=== PATIENT | male | born 1950 | race Caucasian/White ===

== ENCOUNTER 2016-07-16 07:19 | Emergency (ER) | payer BC ==
[2016-07-16 07:38] VITALS: BP 146/94
[2016-07-16] MEDS ORDERED: Lidocaine 1%* 5 ML VIAL ONE (07:54)
--- NOTE | 2016-07-16 08:24 | UC ---
Skin Complaint HPI - HPI Summary HPI Summary: large lump on back of neck for a decade. Now irritated, red, painful. No drainage. MIld malaise and low-grade fever today - History of Current Complaint Chief Complaint: UCSkin Time Seen by Provider: 07/16/16 07:21 Stated Complaint: LUMP BACK OF NECK Hx Obtained From: Patient Onset/Duration: Gradual Onset, Lasting Days - 3 Timing: Constant Onset Severity: Mild Current Severity: Moderate Location: Other - back of neck Character: Swelling, Redness, Painful Aggravating: Touch Alleviating: Nothing Associated Signs & Symptoms: Positive: Tenderness - Allergy/Home Medications Allergies/Adverse Reactions: Allergies Allergy/AdvReac Type Severity Reaction Status Date / Time No Known Allergies Allergy Verified 07/16/16 07:38 Home Medications: Home Medications Aspirin [Gustavo Aspirin] 650 mg PO ONCE PRN 07/16/16 [History Confirmed 07/16/16] Review of Systems Constitutional: Fever Skin: Other - large tender lump on back of neck Eyes: Negative ENT: Negative Respiratory: Negative Cardiovascular: Negative Gastrointestinal: Negative Genitourinary: Negative Motor: Negative Neurovascular: Negative Musculoskeletal: Negative Neurological: Negative Psychological: Negative All Other Systems Reviewed And Are Negative: Yes PMH/Surg Hx/FS Hx/Imm Hx Previously Healthy: Yes - Surgical History Surgical History: Yes Surgery Procedure, Year, and Place: hernia - Social History Occupation: Employed Full-time Lives: With Family Alcohol Use: None Substance Use Type: None Smoking Status (MU): Never Smoked Tobacco Physical Exam Triage Information Reviewed: Yes Appearance: Well-Appearing, No Pain Distress, Well-Nourished Vital Signs: Initial Vital Signs Temp 99.6 F 07/16/16 07:31 Pulse 134 07/16/16 07:31 Resp 18 07/16/16 07:31 BP 146/94 07/16/16 07:31 Pulse Ox 96 07/16/16 07:31 Vital Signs Reviewed: Yes Eye Exam: Normal Dental Exam: Normal Neck exam: Other - large lump on back of neck, size of half a baseball. REddened , warm, tender. No drainage. Central umbilication. Consistent with infected large epidermal inclusion cyst Respiratory Exam: Normal Cardiovascular Exam: Normal Musculoskeletal: Positive: Strength Intact Neurological Exam: Normal Psychological Exam: Normal Skin Exam: Other - as above Course/Dx - Course Course Of Treatment: area prepped with Betadine. 3cc of plain 1% lidocaine infiltrated. STerile #11 blade used to incise abscess. Copious thick, necrotic, foul-smelling cheesy material expressed, nearly a cup. Wound left open. - Diagnoses Provider Diagnoses: abscess Discharge - Discharge Plan Condition: Stable Disposition: HOME Prescriptions: Hydrocodone-Acetaminophen [Hydrocodone/Acetaminophen 5-325 mg] 1 - 2 tab PO Q6HR PRN #14 tab MDD 6 tab PRN Reason: Pain Sulfamethox/Trimethoprim DS* [Bactrim DS 800/160 TAB*] 1 tab PO BID #20 tab Patient Education Materials: Abscess (ED) Referrals: Alexa Varghese MD [Medical Doctor] - No Primary Care Phys,NOPCP [Primary Care Provider] - Additional Instructions: Once the wound has completely healed, talk to Dr. Varghese or your other General Surgeon about removing the cyst wall. This will re-occur unless the cyst wall is removed.
== END 2016-07-16 08:35 | disposition home or self-care (01) ==
LOC: UCCORT 07:19
DX: L02.11 Cutaneous abscess of neck (principal)
CPT/HCPCS: 99212; G0463

== ENCOUNTER 2016-07-16 13:13 | Emergency (ER) | payer BC ==
[2016-07-16] MEDS ORDERED: Acetaminophen TAB* 325 MG PO ONE (13:37)
--- NOTE | 2016-07-16 13:43 | UC ---
Skin Complaint HPI - HPI Summary HPI Summary: Here this AM, had I&D of neck abscess. Copious thick, malodorous material expressed. No bleeding at that time. He went home, and about an hour ago the wound bled through the bandage. This concerned his . He can't see the area because of its location. - History of Current Complaint Chief Complaint: UC Time Seen by Provider: 07/16/16 13:30 Stated Complaint: RE CK NECK Hx Obtained From: Patient Onset/Duration: Gradual Onset, Lasting Hours - 4 Timing: Constant Onset Severity: Mild Current Severity: None - bleeding stopped on arrival here Location: Other - back of neck Character: Pain Aggravating: Touch Alleviating: Nothing Associated Signs & Symptoms: Positive: Tenderness Related History: Trauma - as above, I&D this AM - Allergy/Home Medications Allergies/Adverse Reactions: Allergies Allergy/AdvReac Type Severity Reaction Status Date / Time No Known Allergies Allergy Verified 07/16/16 13:31 Review of Systems Constitutional: Negative Skin: Other - abscess posterior neck, opened and draining Eyes: Negative ENT: Negative Respiratory: Negative Cardiovascular: Negative Gastrointestinal: Negative Genitourinary: Negative Motor: Negative Neurovascular: Negative Musculoskeletal: Negative Neurological: Negative Psychological: Negative All Other Systems Reviewed And Are Negative: Yes PMH/Surg Hx/FS Hx/Imm Hx Previously Healthy: Yes - Surgical History Surgical History: Yes Surgery Procedure, Year, and Place: hernia - Family History Known Family History: Negative: Respiratory Disease, Seizure Disorder - Social History Occupation: Employed Full-time Lives: With Family Alcohol Use: None Substance Use Type: None Smoking Status (MU): Never Smoked Tobacco Physical Exam Triage Information Reviewed: Yes Appearance: Well-Appearing, No Pain Distress, Well-Nourished Vital Signs: Initial Vital Signs Temp 101.5 F 07/16/16 13:21 Pulse 140 07/16/16 13:21 Resp 20 07/16/16 13:21 BP 141/80 07/16/16 13:21 Pulse Ox 95 07/16/16 13:21 Eye Exam: Normal Neck exam: Other - abscess is draining on back of neck. V-shaped incision about 2cm total length. No bleeding at present. Respiratory Exam: Normal Cardiovascular Exam: Normal Musculoskeletal Exam: Normal Neurological Exam: Normal Psychological Exam: Normal Skin Exam: Other - as above Re-Evaluation - Re-Evaluation First Eval Re-Evaluation Time: 14:17 Change: Improved - dressing in place, no bleeding. He requests a work note. Course/Dx - Course Course Of Treatment: bandaged wound. Tylenol for fever of 101.5 - Differential Diagnoses - Skin Complaint Differential Diagnoses: Abscess - Diagnoses Provider Diagnoses: abscess Discharge - Discharge Plan Condition: Stable Disposition: HOME Patient Education Materials: Abscess (ED) Forms: *Work Release Referrals: No Primary Care Phys,NOPCP [Primary Care Provider] -
[2016-07-16 14:17] VITALS: BP 141/80
== END 2016-07-16 14:20 | disposition home or self-care (01) ==
LOC: UCCORT 13:13
DX: Z48.01 Encounter for change or removal of surgical wound dressing (principal)
CPT/HCPCS: 99211; A9270-GY; G0463

== ENCOUNTER 2016-07-18 10:07 | Emergency (ER) | payer BC ==
[2016-07-18 10:28] VITALS: BP 136/76
--- NOTE | 2016-07-18 11:14 | UC ---
Skin Complaint HPI - HPI Summary HPI Summary: recheck abscess. Feels better. Pain is diminished. Continues to drain purulent material, and there is a terrible odor. Thinks there is more stuff to drain out. No fever or vomiting at home. Generally feels better. - History of Current Complaint Chief Complaint: UCSkin Time Seen by Provider: 07/18/16 10:49 Stated Complaint: RE CHECK SKIN COMPLAINT Hx Obtained From: Patient Onset/Duration: Gradual Onset, Lasting Weeks Timing: Constant Onset Severity: Severe Current Severity: Mild Location: Other - back of neck Character: Swelling, Pain, Redness, Raised Aggravating: Touch Alleviating: Nothing Associated Signs & Symptoms: Positive: Tenderness Related History: Trauma - I&D two days ago, not packed - Allergy/Home Medications Allergies/Adverse Reactions: Allergies Allergy/AdvReac Type Severity Reaction Status Date / Time No Known Allergies Allergy Verified 07/18/16 10:30 Review of Systems Constitutional: Negative Skin: Other - purulent drainage, scant on bandage. Some bleeding, mild Eyes: Negative ENT: Negative Respiratory: Negative Cardiovascular: Negative Gastrointestinal: Negative Genitourinary: Negative Motor: Negative Neurovascular: Negative Musculoskeletal: Negative Neurological: Negative Psychological: Negative All Other Systems Reviewed And Are Negative: Yes PMH/Surg Hx/FS Hx/Imm Hx Previously Healthy: Yes - Surgical History Surgical History: Yes Surgery Procedure, Year, and Place: hernia - Family History Known Family History: Negative: Respiratory Disease, Seizure Disorder - Social History Occupation: Employed Full-time Lives: With Family Alcohol Use: None Substance Use Type: None Smoking Status (MU): Never Smoked Tobacco Physical Exam Triage Information Reviewed: Yes Appearance: Well-Appearing, No Pain Distress, Well-Nourished Vital Signs: Initial Vital Signs Temp 99.1 F 07/18/16 10:25 Pulse 132 07/18/16 10:25 Resp 18 07/18/16 10:25 BP 136/76 07/18/16 10:25 Pulse Ox 96 07/18/16 10:25 Vital Signs Reviewed: Yes Eye Exam: Normal Neck exam: Other - abscess appears much improved. Less red. LEss swollen. About 5 tablespoons of thickened purulent material expressed. Mild discomfort. No significant bleeding. Really expressed all the material out this time, he could tolerate it without anesthesia. Packed the wound with about a foot of iodoform gauze, rebandaged wound. Course/Dx - Differential Diagnoses - Skin Complaint Differential Diagnoses: Abscess - Diagnoses Provider Diagnoses: recheck abscess Discharge - Discharge Plan Condition: Stable Disposition: HOME Patient Education Materials: Abscess (ED) Referrals: No Primary Care Phys,NOPCP [Primary Care Provider] - Additional Instructions: The abscess appears to be improving. We really squeezed all of the stuff out today, and placed an anti-bacterial wick inside the wound. Part of the wick is sticking out. This will allow the abscess to continue to drain and will kill the germs directly inside the cavity. Return on Saturday after 2:30pm for a recheck and to have the wick removed. We may or may not repack the wound at that time. If you start to have fever over 101, can't hold the antibiotic down due to vomiting, or have worsening pain in the wound, go to the ER. This was a large infection, and if it's not improving you may need blood tests and IV antibiotics
== END 2016-07-18 11:15 | disposition home or self-care (01) ==
LOC: UCCORT 10:07
DX: L02.11 Cutaneous abscess of neck (principal); R00.0 Tachycardia, unspecified
CPT/HCPCS: 87070; 87077; 87086; 87205; 87640; 87641; 93005; 99212; G0463

== ENCOUNTER 2016-07-20 15:29 | Emergency (ER) | payer BC ==
[2016-07-20 15:33] VITALS: BP 131/84
--- NOTE | 2016-07-20 15:48 | UC ---
Skin Complaint HPI - HPI Summary HPI Summary: follow-up abscess. Still oozing. Packing intact. NO vomiting, no fever, feels better. - History of Current Complaint Chief Complaint: UCWounds Time Seen by Provider: 07/20/16 15:39 Stated Complaint: RE-CHECK NECK Hx Obtained From: Patient Onset/Duration: Gradual Onset, Lasting Weeks - 1 Timing: Constant Onset Severity: Severe Current Severity: Mild Character: Swelling, Redness, Painful Aggravating: Touch Alleviating: Nothing Associated Signs & Symptoms: Positive: Drainage, Tenderness. Negative: Nausea, Vomiting, Fever, Chills, Cough, Chest Pain, Syncope Related History: Trauma - I&D 4d ago, packed 2d ago - Allergy/Home Medications Allergies/Adverse Reactions: Allergies Allergy/AdvReac Type Severity Reaction Status Date / Time No Known Allergies Allergy Verified 07/18/16 10:30 Review of Systems Constitutional: Fatigue - "i just feel worn out" Skin: Other - oozing from incision Eyes: Negative ENT: Negative Respiratory: Negative Cardiovascular: Negative Gastrointestinal: Negative Genitourinary: Negative Motor: Negative Neurovascular: Negative Musculoskeletal: Negative Neurological: Negative Psychological: Negative All Other Systems Reviewed And Are Negative: Yes PMH/Surg Hx/FS Hx/Imm Hx Previously Healthy: Yes - Surgical History Surgical History: Yes Surgery Procedure, Year, and Place: hernia - Family History Known Family History: Negative: Respiratory Disease, Seizure Disorder - Social History Occupation: Employed Full-time Lives: With Family Alcohol Use: None Substance Use Type: None Smoking Status (MU): Never Smoked Tobacco Physical Exam Triage Information Reviewed: Yes Appearance: Well-Appearing, No Pain Distress, Well-Nourished Vital Signs: Initial Vital Signs Temp 99.0 F 07/20/16 15:32 Pulse 121 07/20/16 15:32 Resp 16 07/20/16 15:32 BP 131/84 07/20/16 15:32 Pulse Ox 99 07/20/16 15:32 Vital Signs Reviewed: Yes Eye Exam: Normal Neck exam: Normal Neck: Positive: Supple Respiratory Exam: Normal Cardiovascular: Positive: Tachycardia - He has been tachycardic at every visit. Was 140 on first day, then 103 on discharge Musculoskeletal Exam: Normal Neurological Exam: Normal Psychological Exam: Normal Skin Exam: Other - draining yellow pus from incision on back of neck. No odor now. Packing removed, pus expressed, repacked. Couldn't get in more than 8" of packing material. Redressed wound Course/Dx - Course Course Of Treatment: plan: remove packing Saturday or Saturday. He will try to get appt with his surgeon (Dr. Brown) on Saturday, or will return here Saturday to get packing removed. I would not plan to pack it again. Looking much better - Differential Diagnoses - Skin Complaint Differential Diagnoses: Abscess - Diagnoses Provider Diagnoses: abscess follow-up Discharge - Discharge Plan Condition: Stable Disposition: HOME Patient Education Materials: Abscess Follow-up (ED) Forms: *Work Release Referrals: Marlon Brown MD [Medical Doctor] - No Primary Care Phys,NOPCP [Primary Care Provider] - Additional Instructions: The packing should be removed Saturday or Saturday. SEe if you can make an appointment with your General Surgeon for Saturday. If not, we will remove the packing here. OR, your can pull it out if you prefer to do that. It will ooze pus for several more days, that would be expected and beneficial. Keep it covered until it stops draining. It is looking MUCH improved. Finish off the antibiotics. Eventually, once it is completely healed, a surgeon can remove the cyst wall so it won't re-occur.
== END 2016-07-20 15:58 | disposition home or self-care (01) ==
LOC: UCCORT 15:29
DX: L02.11 Cutaneous abscess of neck (principal)
CPT/HCPCS: 99212; G0463

== ENCOUNTER 2017-12-09 13:28 | Emergency (ER) | payer BC ==
--- NOTE | 2017-12-09 13:42 | UC ---
Skin Complaint HPI - HPI Summary HPI Summary: 67 yo male presents with bee sting to right forearm sustained 2 days ago. He has been taking benadryl, ibuprofen, and icing the area. Yesterday and today noticed increased redness and clear drainage from the site. Says that he is not "allergic" to bees, but when he gets stung he has bad reactions like this. Denies fever, chills, or decreased ROM. - History of Current Complaint Time Seen by Provider: 12/09/17 13:41 Stated Complaint: SKIN (INSECT BITE) Hx Obtained From: Patient Onset/Duration: Gradual Onset Skin Exposure Onset/Duration: Days Ago Timing: Constant Onset Severity: Mild Current Severity: Mild Pain Intensity: 4 Pain Scale Used: 0-10 Numeric - Allergy/Home Medications Allergies/Adverse Reactions: Allergies Allergy/AdvReac Type Severity Reaction Status Date / Time bee venom protein (honey bee) Allergy Swelling Verified 12/09/17 13:40 Home Medications: Home Medications Ibuprofen TAB* [Advil TAB*] 600 mg PO Q6H PRN 12/09/17 [History Confirmed ] diPHENhydraMINE PO* [Benadryl PO 25 MG TAB*] 25 mg PO Q6H PRN 12/09/17 [History Confirmed 12/09/17] Review of Systems Constitutional: Negative Skin: Rash Respiratory: Negative Cardiovascular: Negative Neurovascular: Negative Musculoskeletal: Negative Neurological: Negative Psychological: Negative All Other Systems Reviewed And Are Negative: Yes PMH/Surg Hx/FS Hx/Imm Hx - Additional Past Medical History Additional PMH: none - Surgical History Surgical History: Yes Surgery Procedure, Year, and Place: hernia - Family History Known Family History: Positive: None Negative: Respiratory Disease, Seizure Disorder - Social History Occupation: Retired Lives: With Family Alcohol Use: None Substance Use Type: None Smoking Status (MU): Never Smoked Tobacco Physical Exam - Summary Physical Exam Summary: GENERAL: NAD. WDWN. No pain distress. SKIN: Right dorsal forearm: Distal 1/3 with bee sting and 2.5cm surrounding mild erythema and warmth in all directions. Central area with scant clear drainage. Mild TTP. No streaking, bleeding, or drainage. NECK: Supple. Nontender. No lymphadenopathy. CHEST: No accessory muscle use. Breathing comfortably and in no distress. CV: Pulses intact radial and ulnar. MSK: Right hand and all fingers FROM NEURO: Alert. CN II-XII grossly intact. PSYCH: Age appropriate behavior. Triage Information Reviewed: Yes Vital Signs: Vital Signs: Temp Pulse Resp BP Pulse Ox 99.4 F 112 17 157/80 97 12/09/17 13:38 12/09/17 13:38 12/09/17 13:38 12/09/17 13:38 12/09/17 13:38 Course/Dx - Course Course Of Treatment: Nontoxic appearing. Afebrile. Cellulitis s/p bee sting right arm - keflex. Continue with benadryl and icing the area - Diagnoses Provider Diagnoses: Cellulitis due to bee sting right arm Discharge - Sign-Out/Discharge Documenting (check all that apply): Discharge/Admit/Transfer - Discharge Plan Condition: Stable Disposition: HOME Prescriptions: Cephalexin CAP* [Keflex CAP*] 500 mg PO BID #14 cap Patient Education Materials: Insect Bite or Sting (ED) Referrals: No Primary Care Phys,NOPCP [Primary Care Provider] - Additional Instructions: If you develop a fever, shortness of breath, chest pain, new or worsening symptoms - please call your PCP or go to the ED. Your blood pressure was high at todays visit. Please see your primary provider within 4 weeks for recheck and re-evaluation. - Billing Disposition and Condition Condition: STABLE Disposition: Home
[2017-12-09 13:43] VITALS: BP 157/80
== END 2017-12-09 13:54 | disposition home or self-care (01) ==
LOC: UCCORT 13:28
DX: L03.113 Cellulitis of right upper limb (principal); T63.441A Toxic effect of venom of bees, accidental (unintentional), initial encounter; Y92.9 Unspecified place or not applicable; Z91.030 Bee allergy status
CPT/HCPCS: 99212; G0463

== ENCOUNTER 2017-12-24 21:31 | Emergency (ER) | payer BC ==
[2017-12-24 21:43] VITALS: BP 143/89
--- NOTE | 2017-12-24 21:48 | UC ---
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 He notes that it did not tear any holes in his jeans. He states that he notified his employer and he's been told that the dog is up-to -date on its rabies vaccinations. He denies any pain or swelling or drainage. He reports that he is here at the encouragement of his . She wants him to get the site checked. His tetanus is not utd. - History of Current Complaint Stated Complaint: DOG BITE Time Seen by Provider: 12/24/17 21:37 Hx Obtained From: Patient Onset/Duration: Sudden Onset Has Animal Been Immunized?: Yes Aggravating Factor(s): Nothing Alleviating Factor(s): Nothing Associated Signs And Symptoms: Negative: Fever, Erythema, Swelling, Lymphadenopathy, Numbness/Tingling - Allergies/Home Medications Allergies/Adverse Reactions: Allergies Allergy/AdvReac Type Severity Reaction Status Date / Time bee venom protein (honey bee) Allergy Swelling Verified 12/09/17 13:40 Home Medications: Home Medications NK [No Home Medications Reported] 12/24/17 [History Confirmed 12/24/17] PMH/Surg Hx/FS Hx/Imm Hx Previously Healthy: Yes - Surgical History Surgical History: Yes Surgery Procedure, Year, and Place: hernia - Family History Known Family History: Positive: None Negative: Respiratory Disease, Seizure Disorder - Social History Occupation: Employed Full-time Lives: With Family Alcohol Use: None Substance Use Type: None Smoking Status (MU): Never Smoked Tobacco - Immunization History Hx Tetanus, Diphtheria Vaccination: No Vaccination Up to Date: Yes Review of Systems Constitutional: Negative Skin: Other - bite R thigh Eyes: Negative ENT: Negative Respiratory: Negative Cardiovascular: Negative Gastrointestinal: Negative Genitourinary: Negative Motor: Negative Neurovascular: Negative Musculoskeletal: Negative Neurological: Negative Psychological: Negative Is Patient Immunocompromised?: No All Other Systems Reviewed And Are Negative: Yes Physical Exam Triage Information Reviewed: Yes Appearance: Well-Appearing Vital Signs Reviewed: Yes Eyes: Positive: Conjunctiva Clear ENT: Positive: Normal ENT inspection Neck: Positive: Supple, Nontender, No Lymphadenopathy Respiratory: Positive: Lungs clear, Normal breath sounds Cardiovascular: Positive: RRR, No Murmur Abdomen Description: Positive: Nontender, No Organomegaly, Soft Bowel Sounds: Positive: Present Musculoskeletal: Positive: ROM Intact Neurological: Positive: Alert Psychological: Positive: Age Appropriate Behavior Skin Exam: Normal, Other - Right thigh: Superficial abrasions in the pattern of a bite were noted to the patient's right lateral distal thigh. There is no erythema, warmth, tenderness, swelling or drainage. There is no inguinal adenopathy. There is to the right lower extremity is unremarkable. Bite Injury Course/Dx - Course Course Of Treatment: bite is superficial and did not tear pt's jeans. there are no s/s's of infection. benefit of po antibiotic does not outweigh risk of potential side effects in this case. - Differential Dx/Diagnosis Provider Diagnoses: Abrasions R thigh from dog bite. Discharge - Sign-Out/Discharge Documenting (check all that apply): Patient Departure - Discharge Plan Condition: Stable Disposition: HOME Patient Education Materials: Animal Bite (ED), Hypertension (ED) Referrals: YULIYA Baires [Medical Doctor] - As Soon As Possible Additional Instructions: DIAGNOSIS: ABRASION R THIGH FROM DOG BITE. ELEVATED BLOOD PRESSURE 143/89 - Billing Disposition and Condition Condition: STABLE Disposition: Home
[2017-12-24] MEDS ORDERED: Tetan/Diph/Pertus SYR(Tdap)* 0.5 ML SYR(BOOSTRIX) use SYR IM ONE (21:51)
== END 2017-12-24 22:04 | disposition home or self-care (01) ==
LOC: UCCORT 21:31
DX: S70.311A Abrasion, right thigh, initial encounter (principal); W54.0XXA Bitten by dog, initial encounter; Y93.89 Activity, other specified; Y92.9 Unspecified place or not applicable; Y99.0 Civilian activity done for income or pay
CPT/HCPCS: 90471; 90715; 99211; G0463

== ENCOUNTER 2017-12-30 09:40 | Emergency (ER) | payer BC ==
[2017-12-30 10:22] VITALS: BP 123/97
--- NOTE | 2017-12-30 11:16 | UC ---
Complaint Male HPI - HPI Summary HPI Summary: The patient is a 67-year-old male with a 2+ week history of polyuria and polydipsia. He denies any chest pain or shortness of breath. He has been feeling markedly fatigued. Does not have a primary care doctor. - History of Current Complaint Chief Complaint: UCGeneralIllness Stated Complaint: FATIGUE/WATERY EYES/EAR COMPLAINT Time Seen by Provider: 12/30/17 10:32 Hx Obtained From: Patient Onset/Duration: Gradual Onset, Lasting Weeks Timing: Constant Severity Initially: Mild Severity Currently: Moderate Pain Intensity: 0 Aggravating Factor(s): Other - none Alleviating Factor(s): Other - none - Allergies/Home Medications Allergies/Adverse Reactions: Allergies Allergy/AdvReac Type Severity Reaction Status Date / Time bee venom protein (honey bee) Allergy Swelling Verified 12/30/17 10:20 PMH/Surg Hx/FS Hx/Imm Hx Previously Healthy: Yes - Surgical History Surgical History: Yes Surgery Procedure, Year, and Place: Left Inguinal Herniorrhaphy, ~ [place] - Family History Known Family History: Positive: None, Hypertension Negative: Respiratory Disease, Seizure Disorder - Social History Alcohol Use: None Substance Use Type: None Smoking Status (MU): Never Smoked Tobacco - Immunization History Most Recent Tetanus Shot: 12/24/17 Hx Tetanus, Diphtheria Vaccination: No Vaccination Up to Date: Yes Review of Systems Constitutional: Fatigue Skin: Negative Eyes: Negative ENT: Negative Respiratory: Negative Cardiovascular: Negative Gastrointestinal: Negative Genitourinary: Frequency Motor: Negative Neurovascular: Negative Musculoskeletal: Negative Neurological: Negative Psychological: Negative Is Patient Immunocompromised?: No All Other Systems Reviewed And Are Negative: Yes Physical Exam Triage Information Reviewed: Yes Appearance: Well-Appearing, No Pain Distress, Well-Nourished Vital Signs: Initial Vital Signs Temp 98.1 F 12/30/17 10:15 Pulse 112 12/30/17 10:15 Resp 18 12/30/17 10:15 BP 123/97 12/30/17 10:15 Pulse Ox 100 12/30/17 10:15 Eyes: Positive: Conjunctiva Clear ENT: Positive: Hearing grossly normal. Negative: Nasal congestion, Nasal drainage, Trismus, Muffled voice, Hoarse voice Neck: Positive: Supple, Nontender Respiratory: Positive: Lungs clear, Normal breath sounds, No respiratory distress Cardiovascular: Positive: RRR, Tachycardia Musculoskeletal: Positive: ROM Intact, No Edema Neurological: Positive: Alert Skin Exam: Normal Diagnostics - EKG Cardiac Rate: Tachycardia Cardiac Rhythm: Sinus: Normal Ectopy: None ST Segment: Normal Complaint Male Course/Dx - Course Course Of Treatment: UA ++ glucse. FS- too high to read. d/w [facility] [employer] , accepts pt, no [facility] via POV - Differential Dx/Diagnosis Provider Diagnoses: hyperglycemia. suspect non onset DM. tachycardia. fatigue Discharge - Sign-Out/Discharge Documenting (check all that apply): Patient Departure - Discharge Plan Condition: Stable Disposition: TRANS HIGHER LVL OF CARE FAC Referrals: No Primary Care Phys,NOPCP [Primary Care Provider] - Additional Instructions: please go directly to the ER at [facility] you blood sugar is high and needs evaluating - Billing Disposition and Condition Condition: STABLE Disposition: Trans Higher Lvl of Care Fac
== END 2017-12-30 11:14 | disposition short-term general hospital (02) ==
LOC: UCCORT 09:40
DX: R73.9 Hyperglycemia, unspecified (principal); R00.0 Tachycardia, unspecified; R53.83 Other fatigue
CPT/HCPCS: 81003; 93005; 99212; G0463